=== PATIENT | male | born 2000 | race Hispanic/Latino ===

== ENCOUNTER 2024-02-21 17:40 | Emergency (ER) | payer SELFPAY ==
[2024-02-21 17:41] VITALS: BP 149/90; PULSE 71; RESP 16; TEMP 36.2; O2SAT 100; BMI 24.1
--- NOTE | 2024-02-21 17:59 | EDS_ITS ---
HPI History of Present Illness Chief Complaint: Laceration Informant: patient Narrative Narrative: Use of professor of chemical engineering was used to help with communication. The patient's friend is bilingual. He declined third-constitution party junior account manager. Patient states that last evening around 1700 hrs. he sustained a palmar puncture wound with a screwdriver [place] working [place] farm. He states that he saw the screwdriver tent in the skin on the dorsum of the hand. He is right-handed. He has had prior tetanus shot but does not remember when it was. He notes swelling and pain with movement. He denies any fevers or drainage from the wound. PFSH PFSH Medical History no medical history no medical history Home Medications amoxicillin 875 mg-potassium clavulanate 125 mg tablet 875 mg (0.875 x 875-125 mg) PO Q12H #14 TABLETS 02/21/24 [Rx Last Taken Unknown] Allergy/AdvReac Type Severity Reaction Status Date / Time No Known Allergies Allergy Verified 02/21/24 17:40 Social History Smoking Status: Never smoker ROS ROS ED Constitutional Constitutional ED: Denies chills, fever(s) or weight loss Eyes Eyes: Denies change in vision or diplopia ENT ENT ED: Denies ear pain, rhinorrhea or sore throat Cardiovascular Cardiovascular: Denies chest pain, orthopnea, palpitations or racing heartbeat Respiratory/Chest Respiratory/Chest: Denies cough, dyspnea or orthopnea Gastrointestinal Gastrointestinal: Denies abdominal pain, diarrhea, nausea or vomiting Genitourinary Genitourinary ED: Denies dysuria, hematuria or urinary frequency Musculoskeletal Musculoskeletal: Reports other Details: See history of present illness ; Denies arthralgias or myalgias Integumentary Denies abscess or rash Neurologic Neurologic: Denies headache(s) or weakness Psychiatric Psychiatric: Denies anxiety, depression, suicidal ideation or suicidal thoughts Endocrine Endocrinology: Denies polydipsia, polyphagia or polyuria Allergic/Immunologic Allergic/Immunologic ED: Denies mouth swelling, tongue swelling or urticaria EXAM Physical Exam Const Vital Signs: 02/21/24 17:41 02/21/24 19:14 Temperature 97.2 F L 98.1 F Temperature Source Temporal Pulse Rate 71 70 Respiratory Rate 16 18 Blood Pressure 149/90 H 141/94 H Blood Pressure Mean 109 109 Pulse Ox 100 99 Oxygen Delivery Method Room Air Positive well nourished and well developed General Appearance ED: well developed HEENT Reports normocephalic, head/scalp atraumatic and moist mucous membranes Eyes PERRL and EOMs intact bilaterally Neck no lymphadenopathy, supple and no JVD Resp normal respiratory effort and clear to auscultation bilaterally Cardio regular rate, regular rhythm and no murmurs GI normal to inspection, nondistended, normoactive bowel sounds and non-tender Palpation: soft Back/Spine no CVA tenderness and normal ROM Extremity Extremity Narrative: There is swelling over the dorsum of the left hand. It is not warm or red. There is a faint ecchymosis to the it. Less than 2-second capillary refill of all 5 fingers of the left hand. Strong radial and ulnar pulses. There is a puncture wound in between the thenar and hypothenar eminence. Has a clot on the wound. There is no drainage expressed. No fluctuance. He is able to flex and extend though painful. No lymphangitic streaking. No significant swelling or sausage of the fingers. General Extremety ED: Negative for edema General Extremity: Negative for edema Neuro oriented x3 and CN's II-XII intact bilaterally Sensorium / Orientation: alert Motor Exam: strength 5/5 throughout Psych mental status grossly normal Mood & Affect: Negative for depressed or tearful Skin no rashes or lesions noted and no wounds MDM MDM MDM Narrative Medical decision making narrative: My independent interpretation of the plain films of the left hand is no acute fracture. Soft tissue swelling noted. I do not appreciate any significant gas in the skin. Clinically I think this is a hematoma. I talked to him about potential injury to the venous and arterial arches of the hand however neurovascularly he is appearing intact at this time. The hand does not erythematous or hot. I am going to place him on Augmentin however. We updated his tetanus. Will Khurram wrap the hand. Local wound care. I will have him follow-up with orthopedics as he is not improving. History & Record Review Discussion w/independent historian: Patient and Friend Radiography Diagnostic Testing: Clinical Impression(s) from Imaging Studies Hand X-Ray 02/21/24 18:28 IMPRESSION: No acute radiographic abnormalities. Electronically Signed: Julio Cesar Lange MD at 20:00 EDT , Discharge Plan Triage Chief Complaint: Laceration ED Provider: Chucky Finn Dx/Rx/DC Orders Clinical Impression: Hematoma of left hand, Puncture wound of hand Instructions: ED Puncture Wound (General) Prescriptions: New amoxicillin-pot clavulanate [amoxicillin-pot clavulanate] 875-125 mg tablet 875 mg PO Q12H Qty: 14 0RF Primary Care Provider: Care Physician,No Primary Referrals: Ramakrishna Patel MD [Med Staff - Active Staff] - 3-5 Days if not improving Care Physician,No Primary [Primary Care Provider] - Disposition Disposition: Home, Self Care Discharge Date/Time: 02/21/24 19:15
[2024-02-21] MEDS: Diphth,Pertuss(Acell),Tet Vac 0.5 ML Vial IM (18:06)
[2024-02-21] MEDS: Amox/Clavulanate 875 MG Tablet PO (18:06)
--- NOTE | 2024-02-21 18:28 | RAD_ITS ---
INDICATION: trauma EXAMINATION/TECHNIQUE: X-RAY - LEFT XR Hand Min 3 Views COMPARISON: None. FINDINGS: No acute fracture or malalignment. No blastic or lytic lesions. No degenerative changes are seen. The soft tissues are unremarkable. RAD/Hand Min 3 Views IMPRESSION: No acute radiographic abnormalities. Electronically Signed: Julio Cesar Lange MD at 20:00 EDT ,
[2024-02-21 19:14] VITALS: BP 141/94; PULSE 70; RESP 18; TEMP 36.7; O2SAT 99
== END 2024-02-21 19:15 | disposition home or self-care (01) ==
PROVIDERS: Emergency Provider Emergency Medicine; Visit Provider Emergency Medicine
DX: S60.222A Contusion of left hand, initial encounter (principal); S61.432A Puncture wound without foreign body of left hand, initial encounter; W22.8XXA Striking against or struck by other objects, initial encounter; Y93.89 Activity, other specified; Y92.79 Other farm location as the place of occurrence of the external cause
CPT/HCPCS: 73130; 90715; 99282